=== PATIENT | female | born 1980 | race Caucasian/White ===

== ENCOUNTER 2016-10-04 15:49 | Emergency (ER) | payer OTHER ==
[~2016-10-04] VITALS: Ht 170.2 cm; Wt 83.9 kg
[~2016-10-04 15:49] MED LIST: ALPR2TAB2 PO; CARB200T PO; DEXA6TAB PO; FURO40TA2 PO; GABA-532 PO; HYDR-3326 PO; HYDR-429 PO; MELO-264 PO; METF500T4 PO; PARO40TA PO; POTA20TA83 PO; SIMV10TA6 PO; TOPI25TA8 PO; VALA500T35 PO; ZIPR40CA2 PO; [UNRECOGNIZED DRUG - CODE] PO
[2016-10-04] MEDS ORDERED: METOCLOPRAMIDE HCL 10 MG/2 ML VIAL IV ONE (16:30)
[2016-10-04] MEDS ORDERED: ACETAMINOPHEN 325 MG TABLET PO ONE (16:30)
[2016-10-04] MEDS ORDERED: KETOROLAC TROMETHAMINE INJ 30 MG/ML VIAL IV ONE (16:30)
[2016-10-04] MEDS ORDERED: IV NS 0.9% 1,000 ML BAG IV ONE ×2 (16:30)
[2016-10-04] MEDS ORDERED: LEVETIRACETAM (500MG) 500 MG in IV NS 0.9% 100 ML IV SCH (16:30)
[2016-10-04] MEDS ORDERED: OSELTAMIVIR PHOSPHATE 75 MG CAPSULE PO ONE (16:30)
[2016-10-04] MEDS ORDERED: ONDANSETRON HCL/PF 4 MG/2 ML VIAL IVP ONE (16:30)
[2016-10-04] MEDS ORDERED: METOCLOPRAMIDE HCL 10 MG/2 ML VIAL ONE (16:35)
[2016-10-04] MEDS ORDERED: IV NS 0.9% 2,000 ML ONE (16:36)
[2016-10-04] MEDS ORDERED: IV SET PRIMARY 1 EA INFUS.SET MC ONE (16:36)
[2016-10-04] MEDS ORDERED: IV SET PRIMARY PUMP SET 1 EA INFUS.SET MC ONE (16:36)
[2016-10-04] MEDS ORDERED: ONDANSETRON HCL/PF 4 MG/2 ML VIAL ONE (16:36)
[2016-10-04] MEDS ORDERED: KETOROLAC TROMETHAMINE INJ 30 MG/ML VIAL ONE (16:36)
[2016-10-04] MEDS ORDERED: ACETAMINOPHEN ES 500 MG TABLET ONE (17:55)
[2016-10-04] MEDS ORDERED: OSELTAMIVIR PHOSPHATE 75 MG CAPSULE ONE (17:55)
[2016-10-04 18:34] VITALS: BP 116/1
== END 2016-10-04 18:35 | disposition home or self-care (01) ==
LOC: ER 15:51
DX: J09.X2 Influenza due to identified novel influenza A virus with other respiratory manifestations (principal); E86.0 Dehydration; G40.909 Epilepsy, unspecified, not intractable, without status epilepticus; R11.2 Nausea with vomiting, unspecified; Z91.14 Patient's other noncompliance with medication regimen; E11.9 Type 2 diabetes mellitus without complications; F32.9 Major depressive disorder, single episode, unspecified; F41.9 Anxiety disorder, unspecified; Z98.890 Other specified postprocedural states; Z88.8 Allergy status to other drugs, medicaments and biological substances
CPT/HCPCS: 82962-TC; A4606; J1885; J1953; J2405; J2765; J7030; Z7610

== ENCOUNTER 2016-10-14 11:17 | Emergency (ER) | payer OTHER ==
[~2016-10-14] VITALS: Ht 167.6 cm; Wt 54.4 kg
[~2016-10-14 11:17] MED LIST changes: +FURO-144 PO; -FURO40TA2 PO; -HYDR-429 PO; +HYDR-548 PO
[2016-10-14 12:07] LABS: KETONES,URINE Negative (NEGATIVE); LEUKOCYTE ESTERASE ,URINE Small (NEGATIVE)
[2016-10-14 12:10] LABS: ADD UA MICROSCOPIC YES
[2016-10-14 12:17] LABS: ADD URINE CULTURE NO
[2016-10-14 13:57] VITALS: BP 130/84
== END 2016-10-14 13:58 | disposition home or self-care (01) ==
LOC: ER 11:21
DX: R33.9 Retention of urine, unspecified (principal); E11.9 Type 2 diabetes mellitus without complications; F32.9 Major depressive disorder, single episode, unspecified; F41.9 Anxiety disorder, unspecified; Z79.4 Long term (current) use of insulin; E78.00 Pure hypercholesterolemia, unspecified; Z98.890 Other specified postprocedural states; Z88.8 Allergy status to other drugs, medicaments and biological substances
CPT/HCPCS: 81000-TC; 87086-TC; A4606; Z7610

== ENCOUNTER 2024-08-17 18:40 | Emergency (ER) | payer OTHER ==
[~2024-08-17] VITALS: Ht 170.2 cm; Wt 120.2 kg
[~2024-08-17 18:40] MED LIST changes: +CALC-232 PO; -HYDR-3326 PO; +HYDR-3974 PO; +HYDR-4354 PO; -HYDR-548 PO; +MELO-107 PO; -MELO-264 PO; +METF-440 PO; -METF500T4 PO; -SIMV10TA6 PO; +SIMV10TA98 PO; +TOPI25TA PO; -TOPI25TA8 PO; -VALA500T35 PO; +VALA500T40 PO; -[UNRECOGNIZED DRUG - CODE] PO
[2024-08-17] MEDS: KETOROLAC TROMETHAMINE 15 MG/ML VIAL IM ONE (19:43)
[2024-08-17 22:27] LABS: BASOPHILS # (AUTO) 0.1 K/uL (0.0-0.2); EOSINOPHILS # (AUTO) 0.2 K/uL (0.0-0.7); EOSINOPHILS % (AUTO) 2.1 % (0.0-6.0); MONOCYTES # (AUTO) 0.7 K/uL (0.1-1.30); MONOCYTES % (AUTO) 6.6 % (2.0-12.0); RED CELL DISTRIBUTION WIDTH 15.1 % (11.5-15.0)
[2024-08-17 22:32] LABS: BASOPHILS % (AUTO) 0.7 % (0.0-2.0); HEMATOCRIT 35 % (33-45); HEMOGLOBIN 11.4 g/dL (11.5-14.8); LYMPHOCYTES # (AUTO) 3.1 K/uL (0.8-4.8); LYMPHOCYTES % (AUTO) 28.9 % (20.0-44.0); MEAN CORPUSCULAR HEMOGLOBIN 29 PG (26.0-33.0); MEAN CORPUSCULAR HGB CONC 33 g/dl (31.0-36.0); MEAN CORPUSCULAR VOLUME 87 fL (82-100); NEUTROPHILS # (AUTO) 6.5 K/uL (1.8-8.9); NEUTROPHILS % (AUTO) 61.7 % (43.0-81.0); PLATELET COUNT (AUTO) 344 K/uL (150-450); RED BLOOD CELL COUNT(AUTO) 4.01 MIL/uL (4.0-5.2); WHITE BLOOD COUNT (AUTO) 10.6 K/uL (4.3-11.0)
[2024-08-17 22:40] LABS: INR 1.03 (0.91-1.10); PARTIAL THROMBOPLASTIN TIME 28.5 SEC (24.3-34.3); PROTHROMBIN TIME 10.9 SECS (9.2-11.1)
[2024-08-17 22:41] LABS: CALCIUM, SERUM 8.6 mg/dL (8.5-10.1); CREATININE 0.8 mg/dL (0.6-1.3); POTASSIUM 3.7 mmol/L (3.5-5.1)
[2024-08-17] MEDS: KETOROLAC TROMETHAMINE INJ 30 MG/ML VIAL IV ONE (23:30)
[2024-08-17] MEDS ORDERED: KETOROLAC TROMETHAMINE INJ 30 MG/ML VIAL ONE (23:41)
[2024-08-18] MEDS ORDERED: ONDANSETRON HCL/PF 4 MG/2 ML VIAL IVP PRN
[2024-08-18] MEDS ORDERED: Z GUARD REMEDY 4 OZ OINT TP PRN
[2024-08-18] MEDS ORDERED: ACETAMINOPHEN 650 MG/SUPP.RECT RC PRN
[2024-08-18] MEDS: MORPHINE SULFATE INJ 2 MG/ML DISP.SYRIN IV PRN (00:18)
[2024-08-18] MEDS: MORPHINE SULFATE INJ 2 MG/ML DISP.SYRIN IV ONE ×2 (00:40→04:47)
[2024-08-18] MEDS ORDERED: MORPHINE SULFATE INJ 2 MG/ML DISP.SYRIN ONE (04:44)
[2024-08-18 07:00] VITALS: BP 123/77; TEMP 97.9; O2SAT 98
[2024-08-18] MEDS: KETAMINE HCL(200MG/20ML) 10 MG/ML VIAL IV ONE (07:52)
[2024-08-18] MEDS ORDERED: PANTOPRAZOLE 40 MG VIAL IV SCH (09:00)
== END 2024-08-18 08:00 ==
LOC: ER 18:49
DX: S72.102A Unspecified trochanteric fracture of left femur, initial encounter for closed fracture (principal); E11.9 Type 2 diabetes mellitus without complications; E78.00 Pure hypercholesterolemia, unspecified; F25.9 Schizoaffective disorder, unspecified; F31.9 Bipolar disorder, unspecified; M16.12 Unilateral primary osteoarthritis, left hip; F19.10 Other psychoactive substance abuse, uncomplicated; Z79.1 Long term (current) use of non-steroidal anti-inflammatories (NSAID); Z79.52 Long term (current) use of systemic steroids; Z79.624 Long term (current) use of inhibitors of nucleotide synthesis; Z79.84 Long term (current) use of oral hypoglycemic drugs; Z79.899 Other long term (current) drug therapy; Z88.5 Allergy status to narcotic agent; Z96.641 Presence of right artificial hip joint; X58.XXXA Exposure to other specified factors, initial encounter; Y93.89 Activity, other specified; Y92.89 Other specified places as the place of occurrence of the external cause; Y99.8 Other external cause status
CPT/HCPCS: 99285; 96374; 73700; 71045; 93005; 73503; 85025; 80048; 36415; 85730; 96372; 96375; 96376; J1885 ×2; J2270 ×2; 73502

== ENCOUNTER 2025-05-03 15:47 | Emergency (ER) | payer OTHER ==
[~2025-05-03] VITALS: Ht 170.2 cm; Wt 113.4 kg
[2025-05-03] MEDS ORDERED: KETOROLAC TROMETHAMINE INJ 30 MG/ML VIAL ONE (16:10)
[2025-05-03] MEDS ORDERED: CYCLOBENZAPRINE 10 MG TABLET ONE (16:10)
[2025-05-03] MEDS: CYCLOBENZAPRINE 10 MG TABLET PO ONE (16:15)
[2025-05-03] MEDS: KETOROLAC TROMETHAMINE INJ 30 MG/ML VIAL IM ONE (16:15)
[2025-05-03 16:46] VITALS: TEMP 97.9
[2025-05-03 16:55] LABS: APPEARANCE,URINE CLEAR (CLEAR); BLOOD, URINE Trace-intact Ery/uL (NEGATIVE); LEUKOCYTE ESTERASE ,URINE Negative (NEGATIVE); UGLUCOSE Negative (NEGATIVE)
[2025-05-03 16:59] LABS: NITRITE, URINE NEGATIVE (NEGATIVE)
[2025-05-03 17:01] LABS: ADD URINE CULTURE NO; SQUAMOUS EPITHELIAL CELL,UR Few /HPF (None Seen)
[2025-05-03] MEDS ORDERED: CYCL5TAB PO (17:33)
[2025-05-03 18:10] VITALS: BP 125/75; O2SAT 99
== END 2025-05-03 18:09 | disposition home or self-care (01) ==
LOC: ER 16:03
DX: M54.50 Low back pain, unspecified (principal); I10 Essential (primary) hypertension; E11.9 Type 2 diabetes mellitus without complications; E78.00 Pure hypercholesterolemia, unspecified; F32.A Depression, unspecified; F41.9 Anxiety disorder, unspecified; G89.29 Other chronic pain; Z79.1 Long term (current) use of non-steroidal anti-inflammatories (NSAID); Z79.52 Long term (current) use of systemic steroids; Z79.624 Long term (current) use of inhibitors of nucleotide synthesis; Z79.84 Long term (current) use of oral hypoglycemic drugs; Z79.899 Other long term (current) drug therapy; Z86.61 Personal history of infections of the central nervous system; Z88.5 Allergy status to narcotic agent
CPT/HCPCS: 99283; 96372; 87086; 81001; J1885